=== PATIENT | female | born 1995 ===

== ENCOUNTER 2017-04-26 14:09 | Emergency (ER) | payer BC ==
[2017-04-26] MEDS ORDERED: Ondansetron INJ* 2 MG/ML VIAL IV ONE (17:25)
[2017-04-26] MEDS ORDERED: NS 0.9% 1000 ML* 1,000 ML IV SCH (17:30)
--- NOTE | 2017-04-26 17:39 | UC ---
Abdominal Pain Female HPI - HPI Summary HPI Summary: PT SEEN IN AN URGENT CARE IN [place] 4 DAYS AGO AND DX WITH UTI. GIVEN BACTRIM. 2 DAYS LATER WAS NOT FEELING BETTER SO WENT TO ER. HAD LABS DONE. TODAY RECEIVED A CALL STATING THAT BACTERIA IN URINE WAS RESISTANT TO BACTRIM. PABLO CALLED IN TO [place] BUT SHE HAS NOT STARTED IT YET SHE STATES SHE HAS NOT BEEN ABLE TO KEEP ANYTHING DOWN FOR OVER 24 HOURS. SHE IS HAVING INTERMITTENT FEVER AND NAUSEA. IS MOVING TO THE [facility]. - History of Current Complaint Chief Complaint: UCGU Stated Complaint: FEVER VOMITING URINARY ISSUE Time Seen by Provider: 04/26/17 16:53 Hx Obtained From: Patient, Family/Office Runner - MOM Hx Last Menstrual Period: 04/20/17 Onset/Duration: Gradual Onset, Lasting Days, Still Present Timing: Constant Severity Initially: Moderate Severity Currently: Moderate Pain Intensity: 3 Pain Scale Used: 0-10 Numeric Location: Diffuse Radiates: No Character: Dull Aggravating Factor(s): Food Alleviating Factor(s): Nothing Associated Signs and Symptoms: Positive: Fever, Urinary Symptoms, Decreased Appetite, Nausea, Vomiting Allergies/Adverse Reactions: Allergies Allergy/AdvReac Type Severity Reaction Status Date / Time Penicillins Allergy Unknown See Comment Verified 04/26/17 15:33 Sulfamethoxazole AdvReac Severe Vomiting Verified 04/26/17 15:33 w/Trimethoprim [From Bactrim] PMH/Surg Hx/FS Hx/Imm Hx Previously Healthy: Yes - Surgical History Surgical History: None - Family History Known Family History: Positive: Hypertension - Social History Alcohol Use: Occasionally Substance Use Type: None Smoking Status (MU): Never Smoked Tobacco Review of Systems Constitutional: Fever Respiratory: Negative Cardiovascular: Negative Gastrointestinal: Abdominal Pain, Vomiting, Other - NAUSEA All Other Systems Reviewed And Are Negative: Yes Physical Exam Triage Information Reviewed: Yes Appearance: Well-Appearing, Well-Nourished Vital Signs: Initial Vital Signs Temp 99.4 F 04/26/17 15:26 Pulse 128 04/26/17 15:26 Resp 18 04/26/17 15:26 BP 153/56 04/26/17 15:26 Pulse Ox 100 04/26/17 15:26 Vital Signs Reviewed: Yes Eyes: Positive: Conjunctiva Clear ENT: Positive: Hearing grossly normal, Other: - MUCOUS MEMBRANES PASTY Neck: Positive: Supple Respiratory: Positive: No respiratory distress, No accessory muscle use Cardiovascular: Positive: Pulses Normal Abdomen Description: Positive: Soft. Negative: CVA Tenderness (R), CVA Tenderness (L), Distended, Guarding Musculoskeletal: Positive: No Edema Neurological: Positive: Alert Psychological: Positive: Age Appropriate Behavior Skin: Negative: rashes Re-Evaluation - Re-Evaluation First Eval Re-Evaluation Time: 18:30 - FEELS MUCH BETTER AFTER 1L NA AND 4MG ZOFRAN. OKAY FOR D/C Change: Improved Abd Pain Female Course/Dx - Differential Dx/Diagnosis Provider Diagnoses: DEHYDRATION Discharge - Discharge Plan Condition: Stable Disposition: HOME Prescriptions: Ondansetron ODT TAB* [Zofran Odt TAB*] 4 mg PO Q6H PRN #20 tab.odt PRN Reason: Nausea/Vomiting Patient Education Materials: Dehydration (ED) Additional Instructions: YOU RECEIVED 1L SALINE AND 4MG ZOFRAN THROUGH AN IV TODAY. ZOFRAN NEEDED FOR NAUSEA. START THE CIPRO FOR YOUR UTI TONIGHT. FOLLOW-UP WITH YOUR NEW PCP IN [place] IF NEEDED. ENSURE ADEQUATE HYDRATION. CLEAR LIQUIDS, BLAND DIET. AVOID CAFFEINE, DAIRY, GREASY, SPICY FOODS. ONCE YOU ARE TOLERATING CLEAR LIQUIDS YOU CAN ADVANCE TO SIMPLE, BLAND FOODS.
== END 2017-04-26 18:50 | disposition home or self-care (01) ==
LOC: UCEAST 14:09
DX: E86.0 Dehydration (principal); N39.0 Urinary tract infection, site not specified; B96.89 Other specified bacterial agents as the cause of diseases classified elsewhere; Z88.0 Allergy status to penicillin; Z88.2 Allergy status to sulfonamides
CPT/HCPCS: 96360; 96374; 99202; G0463; J2405